=== PATIENT | female | born 1950 | race Caucasian/White ===

== ENCOUNTER 2023-07-22 08:01 | Outpatient (CLI) | payer MEDICARE, SELFPAY ==
--- NOTE | ~2023-07-22 | US_ITS ---
EXAMINATION: US art doppler w press LE BI DATE: 07/22/2023 08:56 INDICATION: Peripheral vascular disease. TECHNIQUE: Segmental pressures and plethysmographic and Doppler waveforms of the brachial and lower e xtremity arteries were obtained. COMPARISON: None. FINDINGS: Right and left brachial artery pressures of 153 mm Hg and 147 mm Hg, respectively, are concordant (no rmal difference <= 30 mmHg). The right high-thigh pressure index is 1.18 (normal > 1.2). The right ankle-brachial index (JIM) is 1 .09 (normal >= 0.9-1.0). The right great toe-brachial index (TBI) is 0.29 (normal >= 0.65). Arterial Doppler waveforms are at least biphasic from common femoral artery to the ankle. The left high-thigh pressure index is 1.17. The left JIM is 1.13. The left TBI is 0.65. Arterial Dopp ler waveforms are triphasic in common femoral artery, biphasic in superficial femoral artery, poplite al artery, and triphasic at the ankle.. IMPRESSION: 1. Decreased right TBI and normal right JIM, consistent with right-sided arterial occlusive disease. Note that JIM may be overestimated if arteries are calcified. 2. No significant left-sided arterial occlusive disease. Reviewed, dictated and finalized at location A. [employer] IMPRESSION: 1. Decreased right TBI and normal right JIM, consistent with right-sided arteri al occlusive disease. Note that JIM may be overestimated if arteries are calcif ied. 2. No significant left-sided arterial occlusive disease.
== END 2023-07-22 08:02 | disposition home or self-care (01) ==
LOC: ANHIMG 08:07
PROVIDERS: PCP Internal Medicine; Visit Provider Podiatrist Foot & Ankle Surgery
DX: I73.9 Peripheral vascular disease, unspecified (principal)
CPT/HCPCS: 93923